=== PATIENT | female | born 2005 | race Two or more races ===

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

== ENCOUNTER 2023-03-23 10:15 | Emergency (ER) | payer OTHER ==
[~2023-03-23] VITALS: Ht 157.5 cm; Wt 69.2 kg
[2023-03-23 11:14] VITALS: BP 131/88
[2023-03-23] MEDS ORDERED: NAPR500T31 PO (12:02)
[2023-03-23] MEDS ORDERED: AZIT250T8 PO (12:02)
== END 2023-03-23 12:13 | disposition home or self-care (01) ==
LOC: ER 10:15
DX: Z77.098 Contact with and (suspected) exposure to other hazardous, chiefly nonmedicinal, chemicals (principal); J02.9 Acute pharyngitis, unspecified; R42 Dizziness and giddiness
CPT/HCPCS: 71046

== ENCOUNTER 2024-02-04 | Emergency (ER) | payer OTHER ==
[~2024-02-04] VITALS: Ht 157.5 cm; Wt 69.1 kg
[~2024-02-04] MED LIST: AZIT-81 PO; NAPR-746 PO
[2024-02-04] MEDS ORDERED: FAMO20TA10 PO (01:40)
[2024-02-04] MEDS ORDERED: PRED20TA2 PO (01:40)
[2024-02-04] MEDS ORDERED: DIPH25CA66 PO (01:40)
[2024-02-04] MEDS: FAMOTIDINE 20 MG TAB PO ONE (02:10)
[2024-02-04] MEDS: diphenhdrAMINE HCL 50 MG/1 ML VL IM ONE (02:11)
[2024-02-04] MEDS: methylPREDNISolone SOD SUCC 125 MG/2 ML VL IM ONE (02:11)
[2024-02-04 02:20] VITALS: BP 135/81; PULSE 81; RESP 16; TEMP 98.3; O2SAT 98
== END 2024-02-04 02:23 | disposition home or self-care (01) ==
LOC: ER
DX: L50.0 Allergic urticaria (principal)
CPT/HCPCS: 96372; 99284; J1200; J2930